=== PATIENT | female | born 2000 | race Caucasian/White ===

== ENCOUNTER 2022-03-15 15:24 | Emergency (ER) | payer OTHER, SELFPAY ==
[2022-03-15 15:27] VITALS: BP 108/65; PULSE 101; RESP 18; TEMP 36.7; O2SAT 99; BMI 43.0
--- NOTE | 2022-03-15 16:16 | ED.VIS.GI ---
HPI HPI - GI History of Present Illness Chief Complaint: Foreign Body Narrative Narrative: 20-year-old female presenting with chicken stuck in her throat. She states that she was chewing too fast and became lodged. She is having trouble tolerating her own secretions. Patient states he had this happen to her in the past a couple of years ago. She states this time it was on roast beef. She states he came to the ER and they tried to use Coca-[employer] and have a job abdominal does not work. She received what sounds like glucagon and her problem resolved after she vomited. She has not had any follow-up since then. No history of endoscopy. PFSH PFSH Allergy/AdvReac Type Severity Reaction Status Date / Time No Known Allergies Allergy Verified 03/15/22 15:27 Social History Smoking Status: Never smoker ROS ROS ED Constitutional Constitutional ED: Denies chills or fever(s) ENT ENT ED: Reports other Details: Difficulty swallowing secretions/foreign body esophagus ; Denies rhinorrhea or sore throat Cardiovascular Cardiovascular: Denies chest pain or palpitations Respiratory/Chest Respiratory/Chest: Denies cough or dyspnea Gastrointestinal Gastrointestinal: Denies abdominal pain, nausea or vomiting Genitourinary Genitourinary ED: Denies dysuria or hematuria Musculoskeletal Musculoskeletal: Denies arthralgias or back pain Integumentary Denies abscess Neurologic Neurologic: Denies headache(s) or paresthesias Psychiatric Psychiatric: Denies anxiety or depression EXAM Physical Exam Const Vital Signs: 03/15/22 15:27 03/15/22 16:00 Temperature 98.0 F Temperature Source Temporal Pulse Rate 101 H Respiratory Rate 18 Respiratory Effort Normal Non-Labored Respiratory Pattern Normal Blood Pressure 108/65 Blood Pressure Mean 79 Pulse Ox 99 Oxygen Delivery Method Room Air Positive well nourished General Appearance ED: NAD; Negative for pallor HEENT Reports TM's clear and moist mucous membranes HEENT Narrative: Speaking in full sentences, tolerating secretions. No difficulty breathing normocephalic Tympanic Membrane ED: Yes TM's clear Eyes PERRL and EOMs intact bilaterally Cardio regular rate and regular rhythm GI non-tender and non-distended Neuro CN's II-XII intact bilaterally Sensorium / Orientation: alert Psych mental status grossly normal Skin no wounds General Skin Exam: Negative for jaundice or pallor MDM MDM MDM Narrative Medical decision making narrative: Prior to entering the room the patient drank some Coca-Cola jumped up and down and dislodge the foreign body in her esophagus. She states she has no trouble swallowing or breathing currently. Is completely resolved. She does not have any throat pain. I recommended to her that she follow-up with GI as she may need a upper endoscopy in the future. At this point I feel she stable for discharge home. Impression: 1. Foreign body esophagus?resolved 2. Globus hystericus Lab Data Attestation: I reviewed the patient's lab results. Discharge Plan Triage Chief Complaint: Foreign Body ED Provider: Keo Devries Dx/Rx/DC Orders Instructions: ED Esophageal Foreign Body, Resolved Primary Care Provider: Care Physician,No Primary Referrals: Amrit Ugarte DO [Med Staff - Active Staff] - 3-5 Days Care Physician,No Primary [Primary Care Provider] - Disposition Disposition: Home, Self Care
== END 2022-03-15 16:21 | disposition home or self-care (01) ==
PROVIDERS: Emergency Provider Student in an Organized Health Care Education/Training Program; Visit Provider Student in an Organized Health Care Education/Training Program
DX: T18.128A Food in esophagus causing other injury, initial encounter (principal); F45.8 Other somatoform disorders; X58.XXXA Exposure to other specified factors, initial encounter
CPT/HCPCS: 99282

== ENCOUNTER 2022-09-25 11:36 | Emergency (ER) | payer OTHER, SELFPAY ==
[2022-09-25 11:37] VITALS: BP 112/86; PULSE 108; RESP 16; TEMP 36.4; O2SAT 98; BMI 43.6
--- NOTE | 2022-09-25 12:04 | ED.VIS.GI ---
HPI HPI - GI History of Present Illness Chief Complaint: Foreign Body Detail of Chief Complaint: Esophageal food impaction Informant: patient Narrative Narrative: Patient presents to the emergency department with complaint of esophageal food impaction. Patient states that she was eating beef tips and noodles when she felt like a piece of the steak got stuck in her throat. At that time she was unable to swallow her own saliva. She was unable to pass the impaction. She tells me that she had a similar episode around of last year. Patient was told she might need to see a glassware defect repairer but never followed up with anybody. Patient currently states that she feels improved and can now swallow her own spit. She denies any chest pain or shortness of breath. PFSH PFSH Allergy/AdvReac Type Severity Reaction Status Date / Time No Known Allergies Allergy Verified 09/25/22 11:37 Social History Smoking Status: Never smoker ROS ROS ED Review of Systems ROS Unobtainable: other Constitutional Constitutional ED: Reports lethargy; Denies chills, fever(s), sweats or weight loss Eyes Eyes: Denies blurry vision, change in vision or diplopia ENT ENT ED: Denies rhinorrhea or sore throat Cardiovascular Cardiovascular: Denies chest pain, orthopnea or racing heartbeat Respiratory/Chest Respiratory/Chest: Denies cough, dyspnea, dyspnea on exertion, orthopnea or sputum Gastrointestinal Gastrointestinal: Reports other Details: Esophageal food impaction ; Denies abdominal pain, diarrhea, nausea or vomiting Genitourinary Genitourinary ED: Denies dysuria, hematuria or urinary frequency Musculoskeletal Musculoskeletal: Denies arthralgias, back pain, myalgias or neck pain Integumentary Denies abscess, Abrasions or rash Neurologic Neurologic: Denies headache(s) or weakness Psychiatric Psychiatric: Denies anxiety, depression or suicidal thoughts Endocrine Endocrinology: Denies polydipsia, polyphagia or polyuria Hematologic/Lymphatic Hematologic/Lymphatic: Denies easy bleeding, easy bruising or lymphadenopathy Allergic/Immunologic Allergic/Immunologic ED: Denies mouth swelling, tongue swelling or urticaria EXAM Physical Exam Const Vital Signs: 09/25/22 11:37 Temperature 97.6 F L Temperature Source Temporal Pulse Rate 108 H Respiratory Rate 16 Blood Pressure 112/86 H Blood Pressure Mean 94 Pulse Ox 98 Oxygen Delivery Method Room Air Positive well nourished and well developed General Appearance ED: well developed and NAD HEENT Reports TM's clear and moist mucous membranes normocephalic and atraumatic; Negative for trauma or tenderness Tympanic Membrane ED: Yes TM's clear Eyes PERRL and EOMs intact bilaterally General Eye ED: Negative for pale conjunctiva or scleral icterus Neck no lymphadenopathy, supple and no JVD General: Negative for tenderness Chest Wall inspection of chest normal and palpation of chest normal Chest: Negative for tenderness Resp normal respiratory effort and clear to auscultation bilaterally Effort and Inspection: Negative for respiratory distress or pain with movement Auscultation: Negative for rhonchi, wheezes or diminished lung sounds Cardio regular rate, regular rhythm, S1 normal heart sound, S2 normal heart sound and no murmurs Peripheral Pulses: pulses 2+ throughout GI normal to inspection, nondistended, normoactive bowel sounds, soft to palpation, non-tender, non-distended and no masses Back/Spine no CVA tenderness and no thoracic nor lumbar tenderness Extremity normal to inspection General Extremety ED: Negative for edema General Extremity: Negative for edema Neuro oriented x3, CN's II-XII intact bilaterally, no sensory deficits noted and gait normal Sensorium / Orientation: awake, alert, oriented to person, oriented to place and oriented to time Motor Exam: strength 5/5 throughout and strength abnormal Psych mental status grossly normal Skin no rashes or lesions noted and no wounds MDM MDM MDM Narrative Medical decision making narrative: On arrival patient looks comfortable and not describing any discomfort. I did have her drink a Diet Coke and she was able to do that without difficulty or discomfort. Patient feels like her food impactions resolved. I do not feel any further work-up is indicated. I will refer her to GI on-call as I suspect she will likely require EGD to evaluate for esophageal webs or strictures or other process. Patient in agreement with plan. Advised to chew her food small pieces before swallowing. Discharge Plan Triage Chief Complaint: Foreign Body ED Provider: Hazel Mendoza Dx/Rx/DC Orders Clinical Impression: Food impaction of esophagus Instructions: ED Esophageal Foreign Body, Resolved Primary Care Provider: Care Physician,No Primary Referrals: Friend,Amrit, DO [Med Staff - Active Staff] - 3-5 Days Care Physician,No Primary [Primary Care Provider] - Disposition Disposition: Home, Self Care
== END 2022-09-25 12:24 | disposition home or self-care (01) ==
PROVIDERS: Emergency Provider Emergency Medicine; Visit Provider Emergency Medicine
DX: T18.108A Unspecified foreign body in esophagus causing other injury, initial encounter (principal); X58.XXXA Exposure to other specified factors, initial encounter
CPT/HCPCS: 99282